=== PATIENT | female | born 1985 | race Caucasian/White ===

== ENCOUNTER 2018-04-01 17:52 | Emergency (ER) | payer BC ==
[2018-04-01 18:10] VITALS: BP 147/101
[2018-04-01] MEDS ORDERED: Lidocaine 1%* 5 ML VIAL INJ ONE (18:18)
[2018-04-01] MEDS ORDERED: Lidocaine 1% MPF* 2 ML VIAL ONE (18:23)
[2018-04-01] MEDS ORDERED: Tetan/Diph/Pertus SYR(Tdap)* 0.5 ML SYR(BOOSTRIX) use SYR IM ONE (18:25)
--- NOTE | 2018-04-01 18:56 | UC ---
Laceration HPI - HPI Summary HPI Summary: Complains of laceration to medial base of left index finger 1 hour ago. Patient was trying to remove pit from avocado and turned knife into finger. Loss of sensation or function distally. bleeding controlled. - History Of Current Complaint Chief Complaint: UCLaceration Stated Complaint: CUT HAND Time Seen by Provider: 04/01/18 18:11 Hx Obtained From: Patient Laceration Location: Finger Mechanism Of Injury: Sharp Trauma Severity: Mild Pain Intensity: 0 Pain Scale Used: 0-10 Numeric Aggravating Factors: Nothing - Allergies/Home Medications Allergies/Adverse Reactions: Allergies Allergy/AdvReac Type Severity Reaction Status Date / Time codeine Allergy Nausea And Verified 04/01/18 18:10 Vomiting Home Medications: Home Medications Dextroamphetamine/Amphetamine [Adderall Xr 20 mg Capsule] 20 mg PO DAILY [History Confirmed 04/01/18] PMH/Surg Hx/FS Hx/Imm Hx - Surgical History Surgical History: Yes Surgery Procedure, Year, and Place: csection x 2 , retina detachment,breast reduction - Social History Alcohol Use: Occasionally Substance Use Type: None Smoking Status (MU): Current Some Day Smoker - Immunization History Most Recent Tetanus Shot: 0610 Review of Systems Constitutional: Negative Skin: Negative Eyes: Negative ENT: Negative Respiratory: Negative Cardiovascular: Negative Gastrointestinal: Negative Genitourinary: Negative Motor: Negative Neurovascular: Negative Musculoskeletal: Negative Neurological: Negative Psychological: Negative Is Patient Immunocompromised?: No All Other Systems Reviewed And Are Negative: Yes Physical Exam - Summary Physical Exam Summary: PMS intact on left index finger. Flexion and extension intact. Triage Information Reviewed: Yes Appearance: Well-Appearing Vital Signs: Initial Vital Signs Temp 97.1 F 04/01/18 18:04 Pulse 88 04/01/18 18:04 Resp 20 04/01/18 18:04 BP 147/101 04/01/18 18:04 Pulse Ox 100 04/01/18 18:04 Vital Signs Reviewed: Yes Eye Exam: Normal ENT Exam: Normal Dental Exam: Normal Neck exam: Normal Respiratory Exam: Normal Cardiovascular Exam: Normal Abdominal Exam: Normal Musculoskeletal Exam: Normal Neurological Exam: Normal Psychological Exam: Normal Skin Exam: Normal Laceration Repair - Laceration Repair 1 Description: Linear Laceration Size After Repair: Length (cm) - 3, Width (mm) - 1, Depth (mm) - .5 Contamination/FB Removal: no Debridement: no Modified For Repair: No Type Injection: Local Anesthesia Used: 1.0% Lido Cleansing Completed Via Routine Prep: Yes Irrigation With Pressure Irrigation Device: Yes Closure Material: Sutures - 4 sutures total Closure Method: Single Layer Suture Of: Skin Suture Type: Prolene - 4.0 Laceration Course/Dx - Differential Dx - Laceration/Wound Provider Diagnoses: Laceration Discharge - Sign-Out/Discharge Documenting (check all that apply): Discharge/Admit/Transfer - Discharge Plan Condition: Stable Disposition: HOME Prescriptions: Cephalexin CAP* [Keflex CAP*] 500 mg PO TID 5 Days #15 cap Patient Education Materials: Care For Your Stitches (ED), Laceration (ED) Referrals: Erica Briseno MD [Primary Care Provider] - - Billing Disposition and Condition Condition: STABLE Disposition: HOME
[2018-04-01] MEDS ORDERED: Lidocaine 1% MPF* 2 ML VIAL INJ ONE (19:18)
== END 2018-04-01 19:00 | disposition home or self-care (01) ==
LOC: UCEAST 17:52
DX: S61.211A Laceration without foreign body of left index finger without damage to nail, initial encounter (principal); W26.0XXA Contact with knife, initial encounter; Y93.G1 Activity, food preparation and clean up; Y92.9 Unspecified place or not applicable; Z23 Encounter for immunization; Z88.5 Allergy status to narcotic agent; Z72.0 Tobacco use
CPT/HCPCS: 12002; 90715; 99202; G0463

== ENCOUNTER 2019-03-03 12:37 | Emergency (ER) | payer BC, OTHER ==
--- NOTE | 2019-03-03 12:46 | UC ---
Laceration HPI - HPI Summary HPI Summary: 34 yo female presents with laceration to LEFT index finger. 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 She was wearing gloves, but accidentally cut her finger on a sharp piece of equipment. She tells me that it sliced through the glove and she has scant bleeding. She told her boss and her boss requested she be evaluated. Pt is UTD on all immunizations. She tells me that the patient she was cleaning up after had a "clean health history". Pt immediately washed the wound with soap and water following the incident. - History Of Current Complaint Stated Complaint: FINGER LAC Time Seen by Provider: 03/03/19 12:46 Hx Obtained From: Patient Laceration Location: Finger Mechanism Of Injury: Sharp Trauma Onset/Duration: Sudden Onset - Allergies/Home Medications Allergies/Adverse Reactions: Allergies Allergy/AdvReac Type Severity Reaction Status Date / Time codeine Allergy Nausea And Verified 04/01/18 18:10 Vomiting lamotrigine Allergy Rash Verified 03/03/19 13:12 PMH/Surg Hx/FS Hx/Imm Hx - Additional Past Medical History Additional PMH: ADHD - Surgical History Surgical History: Yes Surgery Procedure, Year, and Place: csection x 2 , retina detachment,breast reduction - Family History Known Family History: Positive: None - Social History Occupation: Employed Full-time Lives: With Family Alcohol Use: Occasionally Substance Use Type: None Smoking Status (MU): Current Some Day Smoker - Immunization History Most Recent Tetanus Shot: 0610 Review of Systems All Other Systems Reviewed And Are Negative: Yes Constitutional: Positive: Negative Skin: Positive: Other - Finger laceration Respiratory: Positive: Negative Cardiovascular: Positive: Negative Neurovascular: Positive: Negative Musculoskeletal: Positive: Negative Neurological: Positive: Negative Psychological: Positive: Negative Physical Exam - Summary Physical Exam Summary: GENERAL: NAD. WDWN. No pain distress. SKIN: LEFT INDEX FINGER: Dorsal aspect overlying proximal phalanx with superficial 4mm linear laceration partially through the epidermis. No bleeding. No streaking, bleeding, or drainage. NECK: Supple. Nontender. No lymphadenopathy. CHEST: No accessory muscle use. Breathing comfortably and in no distress. CV: Pulses intact. Cap refill <2seconds NEURO: Alert. PSYCH: Age appropriate behavior. Triage Information Reviewed: Yes Vital Signs: Vital Signs: Temp Pulse Resp BP Pulse Ox 98.1 F 113 18 140/94 100 03/03/19 13:10 03/03/19 13:10 03/03/19 13:10 03/03/19 13:10 03/03/19 13:10 Vital Signs Reviewed: Yes Laceration Course/Dx - Course/Dx Course Of Treatment: Laceration is very superficial and not actively bleeding. Well approximated and barely visible at this time. Recommended against PEP given low risk exposure. Pt declined lab testing today. I encouraged her to f/u with Dr. Arguello of [facility] if she wishes to have lab testing or has further concerns about her work exposure. Apply a band-aid to the wound until well healed - another day or two. - Diagnosis Provider Diagnosis: Finger laceration, Exposure to blood or body fluid Discharge - Sign-Out/Discharge Documenting (check all that apply): Patient Departure All imaging exams completed and their final reports reviewed: No Studies - Discharge Plan Condition: Stable Disposition: HOME Patient Education Materials: Postexposure Prophylaxis (ED), Body Substance Exposure (ED) Referrals: Erica Briseno MD [Primary Care Provider] - Additional Instructions: If you develop a fever, shortness of breath, chest pain, new or worsening symptoms - please call your PCP or go to the ED. Your injury is very low-risk for transmission of any communicable disease. If you decide you wish to undergo testing - please call Dr. Arguello (Occupational Medicine/Worker's Comp) at the number and location below to schedule an appointment. - Billing Disposition and Condition Condition: STABLE Disposition: Home
[2019-03-03 13:16] VITALS: BP 140/94
== END 2019-03-03 13:15 | disposition home or self-care (01) ==
LOC: UCEAST 12:37
DX: W26.9XXA Contact with unspecified sharp object(s), initial encounter (principal); Y93.89 Activity, other specified; Y92.89 Other specified places as the place of occurrence of the external cause; Y99.0 Civilian activity done for income or pay; S61.211A Laceration without foreign body of left index finger without damage to nail, initial encounter; F17.210 Nicotine dependence, cigarettes, uncomplicated; Z77.21 Contact with and (suspected) exposure to potentially hazardous body fluids
CPT/HCPCS: 99201; G0463

== ENCOUNTER 2019-11-01 18:22 | Emergency (ER) | payer BC ==
[2019-11-01 22:11] LABS: ABS Eosinophils 0.1 10^3/ul (0-0.6); ABS Lymphocytes 3.1 10^3/ul (1.0-4.8); ABS Monocytes 0.7 10^3/ul (0-0.8); ABS Neutrophils 10.6 10^3/ul (1.5-7.7); Eosinophil % 0.8 %; Hematocrit 41 % (35-47); Hemoglobin 14.1 g/dL (12.0-16.0); Lymphocyte % 21.3 %; Mean Corpuscular HGB Conc 35 g/dL (31-36); Mean Corpuscular Hemoglobin 31 pg (27-31); Mean Corpuscular Volume 89 fL (80-97); Platelet Count 257 10^3/uL (150-450); Red Blood Count 4.61 10^6 /uL (3.70-4.87); Red Cell Distribution Width 13 % (10-15); White Blood Count 14.6 10^3/uL (3.5-10.8)
[2019-11-01 22:33] LABS: ALT 20 U/L (7-52); AST 20 U/L (13-39); Albumin 4.7 g/dL (3.2-5.2); Albumin/Globulin Ratio 1.8 (1-3); Alkaline Phosphatase 57 U/L (34-104); Anion Gap 5 mmol/L (2-11); BUN/Creatinine Ratio 16.8 (8-20); Blood Urea Nitrogen 16 mg/dL (6-24); CO2 Carbon Dioxide 27 mmol/L (22-32); Calcium 10.3 mg/dL (8.6-10.3); Chloride 103 mmol/L (101-111); EGFR Non-African American 67.7 (>60); Globulin 2.6 g/dL (2-4); Glucose 95 mg/dL (70-100); Potassium 4.1 mmol/L (3.5-5.0); Sodium 135 mmol/L (135-145); Total Protein 7.3 g/dL (6.4-8.9)
[2019-11-01 22:39] LABS: HCG Pregnancy < 0.60 mIU/mL
--- NOTE | 2019-11-02 01:13 | ED ---
HPI Chest Pain - HPI Summary HPI Summary: Patient is a 34 y/o F presenting to [facility] with complaints of left-sided, non- radiating and constant chest pain. Pain onset around 1300/1400 11/01/19 at work after the patient ate lunch. Pain progressively worsened since onset. Patient had initially thought the pain was "heartburn" but became concerned that it was something else as it worsened. On triage, pain is rated 9/10. Patient took TUMS and ASA without relief. She denies previous similar episodes of pain. Deep breaths and laugher aggravates Sx. She denies nausea, diaphoresis, light- headedness and dizziness. She reports Hx of neuropathy. PMHx of ADHD is noted as well, patient takes Adderall. She is a former smoker. Patient is a dental assistant boiler operator. Home medications and allergies are reviewed. - History of Current Complaint Chief Complaint: EDGeneral Time Seen by Provider: 11/02/19 01:06 Hx Obtained From: Patient Onset/Duration: Started Hours Ago, Still Present Timing: Constant, Lasting Hours Current Severity: Severe Pain Intensity: 8 Pain Scale Used: 0-10 Numeric Chest Pain Location: Left Anterior Chest Pain Radiates: No Aggravating Factor(s): Deep Breaths, Other: - laughter Alleviating Factor(s): Nothing Associated Signs and Symptoms: Positive: Chest Pain. Negative: Dizziness, Lightheadedness, Diaphoresis, Nausea - Allergy/Home Medications Allergies/Adverse Reactions: Allergies Allergy/AdvReac Type Severity Reaction Status Date / Time codeine Allergy Nausea And Verified 04/01/18 18:10 Vomiting lamotrigine Allergy Rash Verified 03/03/19 13:12 PMH/Surg Hx/FS Hx/Imm Hx Endocrine/Hematology History: Denies: Hx Diabetes, Hx Thyroid Disease Cardiovascular History: Denies: Hx Hypertension Respiratory History: Denies: Hx Asthma, Hx Chronic Obstructive Pulmonary Disease (COPD) GI History: Denies: Hx Ulcer History: Reports: Hx Kidney Stones - X 6 YEARS AGO - Surgical History Surgery Procedure, Year, and Place: csection x 2 , retina detachment,breast reduction Infectious Disease History: No Infectious Disease History: Denies: Hx Hepatitis, Hx Human Immunodeficiency Virus (HIV), Traveled Outside the [place] in Last 30 Days - Family History Known Family History: Negative: Cardiac Disease, Hypertension, Diabetes - Social History Alcohol Use: Weekly Substance Use Type: Reports: None Smoking Status (MU): Light Every Day Tobacco Smoker Review of Systems Negative: Skin Diaphoresis Positive: Chest Pain Negative: Nausea Neurological: Other - neg - dizziness, light-headedness All Other Systems Reviewed And Are Negative: Yes Physical Exam - Summary Physical Exam Summary: Appearance: Well-appearing, Well-nourished, lying in bed comfortably Skin: Warm, dry, no obvious rash Eyes: sclera anicteric, no conjunctival pallor ENT: mucous membranes moist, pharynx appears normal Neck: Supple, nontender Respiratory: Clear to auscultation, no signs of respiratory distress Cardiovascular: Normal S1, S2. No murmurs. Normal distal pulses in tibial and radial bilaterally. Abdomen: Soft, nontender, normal active bowel sounds present Musculoskeletal: Normal, Strength/ROM Intact Neurological: A&Ox3, awake and alert, mentation is normal, speech is fluent and appropriate Psychiatric: affect is normal, does not appear anxious or depressed Triage Information Reviewed: Yes Vital Signs On Initial Exam: Initial Vitals Temp Pulse Resp BP Pulse Ox 97.9 F 104 18 167/99 100 11/01/19 18:29 11/01/19 18:29 11/01/19 18:29 11/01/19 18:29 11/01/19 18:29 Vital Signs Reviewed: Yes Procedures - Sedation Patient Received Moderate/Deep Sedation with Procedure: No Diagnostics - Vital Signs Vital Signs Temp Pulse Resp BP Pulse Ox 11/01/19 21:31 98.3 F 87 18 168/107 99 11/01/19 18:29 97.9 F 104 18 167/99 100 - Laboratory Lab Results: Lab Results 11/01/19 11/01/19 11/01/19 Range/Units 21:50 21:50 21:50 WBC 14.6 H (3.5-10.8) 10^3/uL RBC 4.61 (3.70-4.87) 10^6 /uL Hgb 14.1 (12.0-16.0) g/dL Hct 41 (35-47) % MCV 89 (80-97) fL MCH 31 (27-31) pg MCHC 35 (31-36) g/dL RDW 13 (10-15) % Plt Count 257 (150-450) 10^3/uL MPV 8.0 (7.4-10.4) fL Neut % (Auto) 72.5 % Lymph % (Auto) 21.3 % [place] % (Auto) 5.1 % Eos % (Auto) 0.8 % Baso % (Auto) 0.3 % Absolute Neuts (auto) 10.6 H (1.5-7.7) 10^3/ul Absolute Lymphs (auto) 3.1 (1.0-4.8) 10^3/ul Absolute Monos (auto) 0.7 (0-0.8) 10^3/ul Absolute Eos (auto) 0.1 (0-0.6) 10^3/ul Absolute Basos (auto) 0.0 (0-0.2) 10^3/ul Absolute Nucleated RBC 0.0 10^3/ul Nucleated RBC % 0.0 Sodium 135 (135-145) mmol/L Potassium 4.1 (3.5-5.0) mmol/L Chloride 103 (101-111) mmol/L Carbon Dioxide 27 (22-32) mmol/L Anion Gap 5 (2-11) mmol/L BUN 16 (6-24) mg/dL Creatinine 0.95 (0.51-0.95) mg/dL Est GFR ( Amer) 82.0 (>60) Est GFR (Non-Af Amer) 67.7 (>60) BUN/Creatinine Ratio 16.8 (8-20) Glucose 95 (70-100) mg/dL Lactic Acid 0.6 (0.5-2.0) mmol/L Calcium 10.3 (8.6-10.3) mg/dL Total Bilirubin 1.10 H (0.2-1.0) mg/dL AST 20 (13-39) U/L ALT 20 (7-52) U/L Alkaline Phosphatase 57 (34-104) U/L Troponin I 0.00 (<0.03) ng/mL Total Protein 7.3 (6.4-8.9) g/dL Albumin 4.7 (3.2-5.2) g/dL Globulin 2.6 (2-4) g/dL Albumin/Globulin Ratio 1.8 (1-3) Beta HCG, Quant < 0.60 mIU/mL 11/02/19 Range/Units 00:33 WBC (3.5-10.8) 10^3/uL RBC (3.70-4.87) 10^6 /uL Hgb (12.0-16.0) g/dL Hct (35-47) % MCV (80-97) fL MCH (27-31) pg MCHC (31-36) g/dL RDW (10-15) % Plt Count (150-450) 10^3/uL MPV (7.4-10.4) fL Neut % (Auto) % Lymph % (Auto) % [place] % (Auto) % Eos % (Auto) % Baso % (Auto) % Absolute Neuts (auto) (1.5-7.7) 10^3/ul Absolute Lymphs (auto) (1.0-4.8) 10^3/ul Absolute Monos (auto) (0-0.8) 10^3/ul Absolute Eos (auto) (0-0.6) 10^3/ul Absolute Basos (auto) (0-0.2) 10^3/ul Absolute Nucleated RBC 10^3/ul Nucleated RBC % Sodium (135-145) mmol/L Potassium (3.5-5.0) mmol/L Chloride (101-111) mmol/L Carbon Dioxide (22-32) mmol/L Anion Gap (2-11) mmol/L BUN (6-24) mg/dL Creatinine (0.51-0.95) mg/dL Est GFR ( Amer) (>60) Est GFR (Non-Af Amer) (>60) BUN/Creatinine Ratio (8-20) Glucose (70-100) mg/dL Lactic Acid (0.5-2.0) mmol/L Calcium (8.6-10.3) mg/dL Total Bilirubin (0.2-1.0) mg/dL AST (13-39) U/L ALT (7-52) U/L Alkaline Phosphatase (34-104) U/L Troponin I 0.00 (<0.03) ng/mL Total Protein (6.4-8.9) g/dL Albumin (3.2-5.2) g/dL Globulin (2-4) g/dL Albumin/Globulin Ratio (1-3) Beta HCG, Quant mIU/mL Result Diagrams: 11/01/19 21:50 11/01/19 21:50 Lab Statement: Any lab studies that have been ordered have been reviewed, and results considered in the medical decision making process. - Radiology CXR Radiology Interpretation Completed By: ED Physician Summary of Radiographic Findings: CXR showed no acute process, pending official report. - EKG 1825 Cardiac Rate: Tachycardia - rate of 104 BPM EKG Rhythm: Sinus Tachycardia Summary of EKG Findings: EKG showed sinus tachycardia with rate of 105 BPM, no STEMI. This EKG was reviewed and interpreted by ED physician. Chest Pain Course/Dx - Course Course Of Treatment: Patient is a 34 y/o F presenting to [facility] with complaints of left-sided, non-radiating and constant chest pain. Pain onset around 1300/ 1400 11/01/19 at work after the patient ate lunch. Pain progressively worsened since onset. Patient had initially thought the pain was "heartburn" but became concerned that it was something else as it worsened. On triage, pain is rated 9/ 10. Patient took TUMS and ASA without relief. She denies previous similar episodes of pain. Deep breaths and laugher aggravates Sx. She denies nausea, diaphoresis, light-headedness and dizziness. Physical exam is unremarkable. EKG showed sinus tachycardia with rate of 105 BPM, no STEMI. CXR showed no acute process. Bloodwork was obtained. First and second trops were negative. Abnormal values include WBC 14.6, absolute neuts 10.6, total bilirubin 1.10. Patient is PERC negative. During ED course, patient was given Motrin 400 mg PO. She was discharged to home and will follow up with PCP. - Diagnoses Provider Diagnoses: Chest wall pain Discharge ED - Sign-Out/Discharge Documenting (check all that apply): Patient Departure - discharge - Discharge Plan Condition: Stable Disposition: HOME Patient Education Materials: Pleurisy (ED), Chest Wall Pain (ED) Referrals: Erica Briseno MD [Primary Care Provider] - Additional Instructions: The tests we ran have ruled out the serious causes of your pain, such as an active heart problem, blood clot in the lung, pneumonia, collapsed lung and the like. It sounds like the pain is coming from the chest wall. This type of pain usually persists for a few days up to a couple of weeks and can be treated symptomatically with OTC analgesics like tylenol or motrin. - Billing Disposition and Condition Condition: STABLE Disposition: Home - Attestation Statements Document Initiated by German: Yes Documenting Scribe: NAIN GARRISON Provider For Whom German is Documenting (Include Credential): BRANDY LEMA MD Scribe Attestation: I, NAIN GARRISON, scribed for BRANDY LEMA MD on 11/03/19 at 0510. Scribe Documentation Reviewed: Yes Provider Attestation: The documentation as recorded by the NAIN garduno accurately reflects the service I personally performed and the decisions made by me, BRANDY LEMA MD Status of Scribe Document: Viewed
[2019-11-02] MEDS ORDERED: Ibuprofen TAB* 400 MG PO ONE (01:35)
[2019-11-02 01:41] VITALS: BP 136/97
== END 2019-11-02 01:40 | disposition home or self-care (01) ==
LOC: ED 18:22
DX: R07.89 Other chest pain (principal); R00.0 Tachycardia, unspecified; F90.9 Attention-deficit hyperactivity disorder, unspecified type; Z88.5 Allergy status to narcotic agent; Z88.8 Allergy status to other drugs, medicaments and biological substances; Z87.891 Personal history of nicotine dependence
CPT/HCPCS: 36415; 71045; 80053; 83605; 84484; 84702; 85025; 93005; 99282; A9270-GY